=== PATIENT | female | born 1950 | race Asian ===

== ENCOUNTER 2017-01-10 08:10 | Day surgery (SDC) | payer OTHER ==
[~2017-01-10] VITALS: Ht 157.5 cm; Wt 68.6 kg
[~2017-01-10 08:10] MED LIST: ATOR10TA84 PO; BLOOD PRESSURE PO; DICLOFENAC SODIUM 0.1% 2.5 ML OPHTHALMIC SOLUTION OD ONE; MOXIFLOXACIN HCL 0.5% 3 ML OPHTHALMIC SOLUTION OD ONE; RINGERS SOLUTION,LACTATED 500 ML IV ONE
[2017-01-10] MEDS ORDERED: TETRACAINE HCL VISCOUS 0.5% 5 ML OPHTHALMIC SOLUTION OD ONE (08:11)
[2017-01-10] MEDS ORDERED: EPINEPHrine 1:1,000 [1 MG/ML] AMP IM ONE (08:11)
[2017-01-10] MEDS ORDERED: HYALURONATE SOD/CHONDROITIN SOD 0.5 ML VIAL IO ONE (08:11)
[2017-01-10] MEDS ORDERED: FentaNYL CITRATE-PF 100 MCG/2 ML VIAL IVP ONE (08:11)
[2017-01-10] MEDS ORDERED: POVIDONE-IODINE 10% 15 ML SOLUTION UD TP ONE (08:11)
[2017-01-10] MEDS ORDERED: NEOMYCIN/POLYMYXIN B/DEXAMETH 3.5 GM OPHTHALMIC OINTMENT OD ONE (08:11)
[2017-01-10] MEDS ORDERED: DEXAMETHASONE SOD PHOS 4 MG/ML VIAL IVP ONE (08:11)
[2017-01-10] MEDS ORDERED: LIDOCAINE HCL/PF 1% 2 ML VIAL IARTIC ONE (08:11)
[2017-01-10] MEDS ORDERED: MIDAZOLAM HCL 2 MG/2 ML VIAL IVP ONE (08:11)
[2017-01-10] MEDS ORDERED: VANCOMYCIN HCL 500 MG/VIAL IRRIG ONE (08:11)
[2017-01-10] MEDS ORDERED: HYALURONIDASE, HUMAN RECOMB. 150 UNITS/ML ID ONE (08:11)
[2017-01-10] MEDS ORDERED: DICLOFENAC SODIUM 0.1% 2.5 ML OPHTHALMIC SOLUTION ONE (08:16)
[2017-01-10] MEDS ORDERED: MOXIFLOXACIN HCL 0.5% 3 ML OPHTHALMIC SOLUTION ONE (08:16)
[2017-01-10] MEDS ORDERED: RINGERS SOLUTION,LACTATED 500 ML IV ONE (08:16)
[2017-01-10] MEDS ORDERED: TROPICAMIDE 1% 2 ML OPHTHALMIC SOLUTION ONE (08:16)
[2017-01-10] MEDS ORDERED: PHENYLEPHRINE HCL 2.5% 2 ML OPHTHALMIC SOLUTION ONE (08:16)
[2017-01-10] MEDS ORDERED: INSNOV SQ (08:48)
[2017-01-10] MEDS ORDERED: METF500T4 PO (08:48)
[2017-01-10] MEDS ORDERED: CLOP75 PO (08:48)
[2017-01-10] MEDS ORDERED: LISI-660 PO (08:48)
[2017-01-10] MEDS ORDERED: ASPI81 PO (08:48)
[2017-01-10] MEDS ORDERED: INSU3INS3 SQ (08:48)
[2017-01-10] MEDS ORDERED: EXEN5PEN2 SQ (08:48)
[2017-01-10] MEDS: TROPICAMIDE 1% 2 ML OPHTHALMIC SOLUTION OD SCH ×2 (09:08→09:16)
[2017-01-10] MEDS: PHENYLEPHRINE HCL 2.5% 2 ML OPHTHALMIC SOLUTION OD SCH ×2 (09:08→09:16)
[2017-01-10 09:17] LABS: GLUCOSE,POINT OF CARE 204 MG/DL (70-110)
== END 2017-01-10 10:35 | disposition home or self-care (01) ==
LOC: SURGERY 08:10
PROVIDERS: ATTEND Specialist
DX: H25.011 Cortical age-related cataract, right eye (principal); I10 Essential (primary) hypertension; F32.9 Major depressive disorder, single episode, unspecified; E11.39 Type 2 diabetes mellitus with other diabetic ophthalmic complication; I25.2 Old myocardial infarction; E78.00 Pure hypercholesterolemia, unspecified; M19.90 Unspecified osteoarthritis, unspecified site; Z87.891 Personal history of nicotine dependence; Z86.79 Personal history of other diseases of the circulatory system; Z79.4 Long term (current) use of insulin; Z95.5 Presence of coronary angioplasty implant and graft; Z79.82 Long term (current) use of aspirin; Z79.899 Other long term (current) drug therapy
CPT/HCPCS: 66982; 82962; 93005; C1780; J0171; J1100; J2250; J3010; J3370; J3473; J3490; J7120

== ENCOUNTER → 2017-04-09 | Outpatient (CLI) | payer OTHER ==
[~2017-04-09] MED LIST changes: +ASPI81 PO; -BLOOD PRESSURE PO; +CLOP75 PO; -DICLOFENAC SODIUM 0.1% 2.5 ML OPHTHALMIC SOLUTION OD ONE; +EXEN5PEN2 SQ; +INSNOV SQ; +INSU3INS3 SQ; +LISI-660 PO; +METF500T4 PO; -MOXIFLOXACIN HCL 0.5% 3 ML OPHTHALMIC SOLUTION OD ONE; -RINGERS SOLUTION,LACTATED 500 ML IV ONE
== END | disposition home or self-care (01) ==
LOC: RADPV 11:40
PROVIDERS: ATTEND Internal Medicine
DX: R76.11 Nonspecific reaction to tuberculin skin test without active tuberculosis (principal)

== ENCOUNTER 2020-06-06 08:35 | Emergency (ER) | payer OTHER ==
[~2020-06-06] VITALS: Ht 157.5 cm; Wt 55.0 kg
[~2020-06-06 08:35] MED LIST changes: +ASPI-1450 PO; -ASPI81 PO; -CLOP75 PO; +CLOP75TA60 PO; -LISI-660 PO; +LISI-892 PO; +METF-960 PO; -METF500T4 PO
[2020-06-06] MEDS ORDERED: ACETAMINOPHEN 325 MG TABLET PO ONE (09:00)
[2020-06-06 09:01] VITALS: BP 139/80
[2020-06-06 09:12] LABS: GLUCOSE,POINT OF CARE 572 MG/DL (70-110)
== END 2020-06-06 09:15 | disposition left against medical advice (07) ==
LOC: EMS 08:35
DX: M79.604 Pain in right leg (principal); I25.10 Atherosclerotic heart disease of native coronary artery without angina pectoris; E11.9 Type 2 diabetes mellitus without complications; E78.00 Pure hypercholesterolemia, unspecified; I10 Essential (primary) hypertension; I25.2 Old myocardial infarction; Z87.891 Personal history of nicotine dependence; Z79.4 Long term (current) use of insulin; Z79.899 Other long term (current) drug therapy
CPT/HCPCS: 82962; 99283

== ENCOUNTER 2022-07-02 11:47 | Emergency (ER) | payer OTHER ==
[~2022-07-02] VITALS: Ht 147.3 cm; Wt 50.0 kg
[~2022-07-02 11:47] MED LIST changes: +ATOR10TA PO; -ATOR10TA84 PO; +METF-1211 PO; -METF-960 PO
[2022-07-02] MEDS ORDERED: SODIUM CHLORIDE 0.9% 1,000 ML IV ONE (13:30)
[2022-07-02 13:48] LABS: BASOPHILS % (AUTO) 0.5 % (0.0-2.0); EOSINOPHILS % (AUTO) 0.3 % (1.0-6.0); HEMATOCRIT 51.6 % (36-46); HEMOGLOBIN 16.9 g/dL (12.0-16.0); LYMPHOCYTES # (AUTO) 1.5 K/uL (1.0-4.8); LYMPHOCYTES % (AUTO) 15.4 % (22.0-44.0); MEAN CORPUSCULAR HEMOGLOBIN 30.3 pg (26.0-34.0); MEAN CORPUSCULAR HGB CONC 32.7 G/dL (31.0-37.0); MEAN CORPUSCULAR VOLUME 93 fL (80-100); MONOCYTES # (AUTO) 0.4 K/uL (0.1-1.0); MONOCYTES % (AUTO) 4.1 % (2.0-9.0); NEUTROPHILS # (AUTO) 7.7 K/uL (1.8-7.7); NEUTROPHILS % (AUTO) 79.7 % (40.0-70.0); PLATELET COUNT (AUTO) 270 K/uL (150-450); RED BLOOD CELL COUNT(AUTO) 5.58 MIL/uL (4.00-5.20); RED CELL DISTRIBUTION WIDTH 13.5 % (11.5-14.5)
[2022-07-02 14:05] LABS: ANION GAP 7 mmol/L (8-16); CALCIUM, TOTAL 9.1 mg/dL (8.8-10.5); CARBON DIOXIDE 30 mmol/L (22-29); CHLORIDE 99 mmol/L (98-107); CREATININE 0.68 mg/dL (0.60-1.30); GLOMERULAR FILTR. RATE CALC > 60 mL/min (>60); GLUCOSE,RANDOM 354 mg/dL (70-110); SODIUM SERUM 136 mmol/L (136-145)
[2022-07-02 14:11] LABS: ALANINE AMINOTRANSFERASE 20 U/L (12-78); ALBUMIN 3.3 g/dL (3.4-5.0); ALKALINE PHOSPHATASE 105 U/L (46-116); ASPARTATE AMINOTRANSFERASE 14 U/L (15-37); BILIRUBIN,TOTAL 0.8 mg/dL (0.1-1.0); LIPASE 93 U/L (73-393); TOTAL PROTEIN, SERUM 7.4 g/dL (6.4-8.2)
[2022-07-02 16:15] VITALS: BP 134/78
[2022-07-02 16:53] LABS: APPEARANCE,URINE HAZY (CLEAR); BILIRUBIN,URINE NEGATIVE (NEGATIVE); GLUCOSE, URINE (UA) >=1000 mg/dL (NEGATIVE); KETONES,URINE NEGATIVE (NEGATIVE); LEUKOCYTE ESTERASE ,URINE SMALL (NEGATIVE); OCCULT BLOOD,URINE NEGATIVE (NEGATIVE); PH,URINE 5.5 (5.0-8.0); PROTEIN,URINE NEGATIVE (NEGATIVE); SPECIFIC GRAVITIY, URINE 1.014 (1.003-1.030); UROBILINOGEN,URINE <=1.0 mg/dL (<=1.0)
[2022-07-02 17:03] LABS: BACTERIA,URINE Many /HPF (None Seen); NITRATE,URINE POSITIVE (NEGATIVE); RBC,URINE 0-2 /HPF (0-2); SQUAMOUS EPITHELIAL CELL,UR Few /LPF (None Seen)
== END 2022-07-02 16:39 | disposition home or self-care (01) ==
LOC: EMS 11:52
DX: R11.2 Nausea with vomiting, unspecified (principal); E11.9 Type 2 diabetes mellitus without complications; E78.00 Pure hypercholesterolemia, unspecified; I10 Essential (primary) hypertension; I25.10 Atherosclerotic heart disease of native coronary artery without angina pectoris; I25.2 Old myocardial infarction
CPT/HCPCS: 74022; 80053; 81001; 82962; 83690; 84484; 85025; 87086; 87186; 93005; 96360; 99285; 36415-L1; 36415-TC